=== PATIENT | male | born 1965 | race Caucasian/White ===

== ENCOUNTER 2020-04-08 10:33 | Emergency (ER) | payer OTHER | END 2020-04-08 12:36 | disposition home or self-care (01) | LOC: FER 10:33 | DX: S42.022A Displaced fracture of shaft of left clavicle, initial encounter for closed fracture (principal); W19.XXXA Unspecified fall, initial encounter; Y92.89 Other specified places as the place of occurrence of the external cause; Y99.0 Civilian activity done for income or pay; Z88.0 Allergy status to penicillin | CPT/HCPCS: 71101; 73030 ==